=== PATIENT | female | born 2000 | race Two or more races ===

== ENCOUNTER 2024-06-01 15:08 | Emergency (ER) | payer MEDICAID, SELFPAY ==
[2024-06-01 15:09] VITALS: BMI 33.6
[2024-06-01 15:39] VITALS: BP 137/81; PULSE 93; RESP 18; TEMP 36.6; O2SAT 99
[2024-06-01] MEDS: TETRACAINE PF OP SOL 0.5% 4 ML DRPETTE 1 DROP BOTH EYES (15:40)
--- NOTE | 2024-06-01 15:59 | EDNOTE_ITS ---
<Statement entered by Corinna Hatfield MD - 06/01/24 17:52> As co-signing physician, I was present and available for consult prn. I concur with the plan and care as documented by the midlevel provider. ED Eye Problem RME/HPI General Chief complaint: Eye Problems Stated complaint: CONTACT STUCK IN LEFT EYE, EYE PAIN Time Seen by Provider: 06/01/24 15:26 Arrival date/time: 06/01/24 15:08 23-year-old female presents the emergency department today with concerns for a contact lens stuck in her left eye patient reports irritation since last night Limitations: no limitations Related Data Previous Rx's ?Medication ?Instructions ?Recorded ibuprofen 600 mg tablet 600 mg PO TID PRN pain #30 tabs 06/20/22 hydrocodone 5 mg-acetaminophen 325 1 tab PO Q6H #20 tabs 09/17/23 mg tablet ibuprofen 600 mg tablet 600 mg PO Q6H PRN pain #30 tabs 02/21/24 tobramycin 0.3 % eye drops 2 drp ophthalmic (eye) Q4H 5 days 06/01/24 #5 mL Allergies Allergy/AdvReac Type Severity Reaction Status Date / Time No Known Allergies Allergy Verified 06/01/24 15:11 Review of Systems Review of Systems Systems Reviewed: All systems reviewed, normal except as documented Constitutional Constitutional: Reports system reviewed and no additional complaints, except as documented, Denies fever(s) and Denies headache(s) Eyes Eyes: Reports system reviewed and no additional complaints, except as documented and Denies blurry vision ENT Ears, Nose, Mouth, and Throat: Reports system reviewed and no additional complaints, except as documented, Denies headache(s), Denies nasal congestion and Denies nasal discharge Cardiovascular Cardiovascular: Reports system reviewed and no additional complaints, except as documented, Denies chest pain and Denies dyspnea Respiratory Respiratory: Reports system reviewed and no additional complaints, except as documented, Denies chest congestion, Denies cough and Denies dyspnea Gastrointestinal Gastrointestinal: Reports system reviewed and no additional complaints, except as documented and Denies abdominal pain Integumentary/Breasts Skin/Breast: Reports system reviewed and no additional complaints, except as documented and Denies rash Neurologic Neurologic: Reports system reviewed and no additional complaints, except as documented, Reports as per HPI and Denies headache(s) Past Medical History Past Medical History NEUROLOGIC: Negative Seizures CARDIAC: Negative Cardiac Disorders or Congestive Heart Failure RESPIRATORY: Negative Chronic Obstructive Pulmonary Disease (COPD) or Asthma GENITOURINARY: Negative Renal Disease ENDOCRINE: Negative Diabetes Mellitus Type 1 or Diabetes Mellitus Type 2 HEMATOLOGIC: Negative Sickle Cell Disease OTHER HISTORY: Negative Blood Transfusions, Blood Transfusion Reaction or Anesthesia Reactions (pt never had surgery) Social History SMOKING STATUS: Never smoker ED Exam General Limitations: Present no limitations General appearance: Present alert and in no apparent distress Head Head exam: Present atraumatic Eye Eye exam: Present PERRL, EOMI and conjunctival injection; Absent periorbital swelling ENT ENT exam: Present normal exam, normal oropharynx and mucous membranes moist Neck Neck exam: Present normal inspection, full ROM and trachea midline Chest Chest inspection: Present normal inspection and symmetric chest wall rise Respiratory Respiratory exam: Present normal lung sounds bilaterally Cardiovascular Cardiovascular exam: Present regular rate, normal rhythm and normal heart sounds Abdominal Exam Abdominal exam: Present soft and normal bowel sounds Extremities Exam Extremities exam: Present normal inspection and full ROM Back Exam Back exam: Present normal inspection and full ROM Neurological Exam Neurological exam: Present alert, oriented X3 and CN II-XII intact Psychiatric Psychiatric exam: Present normal affect and normal mood Skin Skin exam: Present warm, dry, intact and normal color Course Quality Measures none Orders Category Date Time Status TETRACAINE Op Racheal 0.5% [Pontocaine Op Racheal 0.5%] Med 06/01/24 15:26 Discontinued 1 drop BOTH EYES X1 ONE Vital Signs Vital signs: Vital Signs Temperature 98 F 06/01/24 15:39 Pulse Rate 93 06/01/24 15:39 Respiratory Rate 18 06/01/24 15:39 Blood Pressure 137/81 H 06/01/24 15:39 Pulse Oximetry (%) 99 06/01/24 15:39 Oxygen Delivery Method Room Air 06/01/24 15:39 O2 saturation 99% room air within normal limits Eye MDM Narrative MDM Narrative:: 23-year-old female presents the emergency department today with concerns for a contact lens stuck in her left eye patient reports irritation since last night On exam patient does not appear ill or toxic patient does not appear to be in acute distress On exam I do not appreciate any foreign bodies in the left eye patient has no hyphema no foreign bodies noted I did ask my colleague to take a look as well and he also did not see me foreign body Patient discharge home on antibiotics Patient discharged home in no distress to follow-up with primary care doctor in the next 24 to 48 hours and for any worsening symptoms to return to the ER immediately Patient data External records reviewed:: [facility] previous records Clinical information provided by:: patient Social determinants that could affect healthcare access:: none Patient has the following chronic illnesses:: None How is presenting disease/condition affected by chronic disease/condition?: no chronic disease Evaluation data The following diagnostics were reviewed and interpreted by me:: other (specify) (NA) Lab and/or radiology exams considered but not ordered:: Consider not ordered Interpretation Summary: N/A Medications / Prescriptions Medications or Prescriptions considered but not ordered:: Given Medication administrations:: Medication Administration History Discontinued Medications Tetracaine HCl (Tetracaine Pf Op Racheal 0.5% 4 Ml Drpette) 1 drop BOTH EYES X1 ONE Stop: 06/01/24 15:27 Last Admin: 06/01/24 15:40 Dose: 1 drop Documented By: Given Consultations Consultation(s) initiated? (list below): No Diagnosis Eye Problem Differential Diagnosis: corneal abrasion, conjunctivitis, corneal ulcer and other (Left eye irritation) Most likely diagnosis given after review of the tests above:: Left eye irritation Admission Indicated Admission indicated?: not indicated Admission Request Was there a request for admission?: No Disposition Plan Disposition Plan: Discharge Discharge Attestation Discharge Attestation: The patient and all family members were given an opportunity to ask questions and understood the discharge instructions. Discharge instructions specifically effects, indications for sooner follow up or return to the emergency department, and the expected course of current diagnosis. Patient condition: Stable Discharge Plan Plan Patient Disposition: HOME (Self Care) Disposition Comment: Stable Prescriptions/Referrals Prescriptions/Med Rec: New tobramycin 0.3 % drops 2 drp ophthalmic (eye) Q4H 5 Days Qty: 5 0RF No Action ibuprofen 600 mg tablet 600 mg PO TID PRN (Reason: pain) Qty: 30 0RF ibuprofen 600 mg tablet 600 mg PO Q6H PRN (Reason: pain) Qty: 30 0RF hydrocodone-acetaminophen 5-325 mg tablet 1 tab PO Q6H MDD 4 Qty: 20 0RF Problem List Clinical Impression: Irritation of left eye Patient/Caregiver Discharge Instructions Education Materials: How the Eye Works Additional Instructions: Please follow up with your primary care doctor in the next 24-48hrs for any worsening symptoms return here immediately Print Language: Swedish Stand Alone Forms: [employer] Award Info., Patient Portal Info Letter PA/DIETITIAN THERAPEUTIC Supervising Physician PA/DIETITIAN THERAPEUTIC Supervising Physician: Dr. Hatfield
== END 2024-06-01 16:16 | disposition home or self-care (01) ==
LOC: SERX 16:03
PROVIDERS: Emergency Provider Emergency Medicine; PCP Registered Nurse Community Health
DX: H57.89 Other specified disorders of eye and adnexa (principal)
CPT/HCPCS: 99282

== ENCOUNTER 2025-04-17 14:18 | Outpatient (CLI) | payer MEDICAID, SELFPAY ==
[2025-04-17] VITALS (19 sets, daily range): BP systolic 130; BP diastolic 86; PULSE 76–95; RESP 20–99; TEMP 37; O2SAT 99–100; BMI 41.1
--- NOTE | 2025-04-17 14:36 | XR_ITS ---
Examination: Biophysical profile, ultrasound Date and time of exam: April 17, 2025, 1550 hours INDICATIONS: Nonreactive NST in the doctor's office today Technique: Multiple transabdominal sonographic images of the pelvis abdomen obtained. Attention is directed to the breathing movement, gross body movement, amniotic fluid volume and tone. Findings: Amniotic fluid index 7.8 cm Total biophysical profile is 8 of 8. breathing movement is 2. Gross body movement is 2. tone is 2. Qualitative amniotic fluid volume is 2 Impression: Biophysical profile is 8 of 8.
[2025-04-17] MEDS: PANTOPRAZOLE 20 MG TABLET PO (16:10)
== END 2025-04-17 16:20 | disposition home or self-care (01) ==
LOC: S4S1 14:19 → S4SX 14:19
PROVIDERS: Referring Provider Specialist; Visit Provider Specialist
DX: Z34.03 Encounter for supervision of normal first pregnancy, third trimester (principal); Z36.9 Encounter for antenatal screening, unspecified; Z3A.40 40 weeks gestation of pregnancy
CPT/HCPCS: 59025; 76819; A9270

== ENCOUNTER 2025-04-18 21:37 | Observation (INO) | payer MEDICAID, SELFPAY ==
[2025-04-18 21:43] VITALS: BP 137/80; PULSE 83; RESP 18; RESP 99; TEMP 37; BMI 43.1
[2025-04-18 21:50] VITALS: BP 137/80; PULSE 83
== END 2025-04-19 01:33 | disposition home or self-care (01) ==
PROVIDERS: Admitting Provider Specialist; Visit Provider Specialist
DX: O47.1 False labor at or after 37 completed weeks of gestation (principal); O26.893 Other specified pregnancy related conditions, third trimester; M54.9 Dorsalgia, unspecified; Z3A.40 40 weeks gestation of pregnancy
CPT/HCPCS: 59025; 59899

== ENCOUNTER 2025-04-19 22:36 | Inpatient (IN) | payer MEDICAID, SELFPAY ==
[2025-04-19] VITALS (17 sets, daily range): BP systolic 132–142; BP diastolic 66–82; PULSE 71–95; RESP 16–98; TEMP 36.5; O2SAT 98–100
[2025-04-20] VITALS (151 sets, daily range): BP systolic 91–156; BP diastolic 56–108; PULSE 75–123; RESP 16–26; TEMP 36.6–37.5; O2SAT 85–100; BMI 42.3
[2025-04-20] MEDS: Ampicillin Inj 2,000 MG in SODIUM CHLORIDE 0.9% (POP) 100 ML 200 MG IV (02:01)
[2025-04-20] MEDS: RINGERS LACTATED 1000 ML 1,000 ML 100 ML IV ×2 (02:03→14:09)
[2025-04-20] MEDS: fentaNYL CIT INJ 50 mCg/ML AMP 2ML 100 MCG IVP ×3 (02:08→12:13)
[2025-04-20 02:45] LABS: Basophils # (Auto) 0.0 Thou/mm3 (0.0-0.2); Basophils % (Auto) 0 % (0-2.5); Eosinophils # (Auto) 0.0 Thou/mm3 (0.0-0.5); Eosinophils % (Auto) 0 % (0-10); Hematocrit 37.0 % (36.0-46.0); Hemoglobin 11.6 g/dL (12.0-16.0); Immature Granulocytes Auto 0.07 Thou/mm3 (0.00-0.00); Lymphocytes # (Auto) 1.1 Thou/mm3 (1.0-4.8); Lymphocytes % (Auto) 7 % (10-50); Mean Corpuscular HGB Conc 31.4 g/dl (31.0-37.0); Mean Corpuscular Hemoglobin 25.3 pg (25.0-35.0); Mean Corpuscular Volume 81 fL (80-100); Monocytes # (Auto) 0.7 Thou/mm3 (0.0-0.8); Monocytes % (Auto) 4 % (0-12); Neutrophils # (Auto) 13.3 Thou/mm3 (1.8-7.7); Neutrophils % (Auto) 88 % (37-80); Nucleated Red Blood Cell # 0.00 Thou/mm3 (0.00-0.00); Nucleated Red Blood Cell % 0 /100 WBC (0); Platelet Count 262 Thou/mm3 (140-440); RDW Standard Deviation 40.9 fL (36.4-46.3); Red Blood Count 4.58 Miln/mm3 (4.00-5.20); White Blood Count 15.2 Thou/mm3 (3.6-11.0)
[2025-04-20 03:30] LABS: Syphilis Nonreactive (Nonreactive)
--- NOTE | 2025-04-20 06:36 | ESHP_ITS ---
Documentation for date of: 04/20/25 OB Labor/Induct. HPI History of Present Illness : 1 Para: 0 Term pregnancies: 0 pregnancies: 0 Living children: 0 History of Abortions: Spontaneous and Elective: 0 History of Vaginal deliveries: 0 History of sections: No History of : No Date of last menstrual period: 07/08/24 JUANITO: 04/14/25 Gestational age based on last menstrual period: 39 History of present illness: H and P dictated on STAT line #9 in [facility]. #[id number] History of Present Adequate Care: Yes Labs Labs: Positive: Group Beta Strep, Negative: RPR, Hepatitis B, Rubella Titre, HIV, Chlamydia and Gonorrhea and Unknown: Herpes Type 1 and Herpes Type 2 Past Medical History Surgical History SURGICAL: Negative Section Meds Home Medications and Allergies Home Medications ?Medication ?Instructions ?Recorded ?Confirmed ?Type vit with calcium-iron 1 tab PO QDAY 04/17/25 04/17/25 History fum-folic acid 60 mg-0.8 mg tablet Allergies Allergy/AdvReac Type Severity Reaction Status Date / Time No Known Allergies Allergy Verified 04/20/25 01:31 OB Exam Physical Exam Vital signs: Temp Pulse Resp BP Pulse Ox 97.7 F 101 H 16 113/65 97 04/19/25 22:58 04/20/25 06:14 04/19/25 22:58 04/20/25 06:14 04/20/25 00:55 OB Results Labs 04/20/25 02:26 Labs: Short CBC 04/20/25 Range/Units 02:26 WBC 15.2 H (3.6-11.0) Thou/mm3 Hgb 11.6 L (12.0-16.0) g/dL Hct 37.0 (36.0-46.0) % Plt Count 262 (140-440) Thou/mm3
[2025-04-20] MEDS: Ampicillin Inj 1,000 MG in SODIUM CHLORIDE 0.9% (Popper) 50 ML 50 MG IV ×2 (06:37→10:15)
--- NOTE | 2025-04-20 06:47 | PD.LDPN ---
Documentation for date of: 04/20/25 OB Labor Progress Note Pain Control Comments: Fentanyl x 2 last at 04:45 Pelvic Exam Dilation (cm): 6 Effacement (%): 100 station: -1 Amniotic membrane status: Ruptured Comments: Clear fluid Contractions Monitor mode: External Contraction frequency: 2-4.5 Contraction intensity: Mild Status status: Category l Assessment and Plan Comments: Anticipate History of Present Illness HPI Coping with labor pains . No CP or SOB.
--- NOTE | 2025-04-20 14:13 | PD.LDPN ---
Documentation for date of: 04/20/25 OB Labor Progress Note Pelvic Exam Dilation (cm): 6 Effacement (%): 100 station: -1 Amniotic membrane status: Ruptured Contractions Monitor mode: External Contraction frequency: 2-3 Contraction intensity: Strong Status status: Category ll Assessment and Plan Comments: Delivery Arrest of Dilation Chorioamnionitis Acetaminophen 1000mg IV x one dose Antibiotics Discussed with patient the risks, complications, alternative and benefits of the proposed procedure and she agrees. History of Present Illness HPI Coping with labor pains . No CP or SOB.
--- NOTE | 2025-04-20 14:21 | ESDS_ITS ---
DS: Providers Provider Date of admission: 04/23/25 00:49 Primary care physician: Physician No Primary/Family Admitting Provider: Paul Kirkpatrick MD Attending Provider on Admission: Paul Kirkpatrick MD Attending Provider on DC: Paul Kirkpatrick MD Discharging Provider: Paul Kirkpatrick MD DS: Diagnosis Problem List Completed Was Problem List Reviewed/Reconciled?: Yes Summary/Hosp Course Brief History: Coping with labor pains . No CP or SOB. Peripartum Data Delivery Method: Low Transverse Time Spent with Patient Time attestation: Total time spent providing and/or coordinating discharge services: Exam Vital Signs Temp Pulse Resp BP Pulse Ox O2 Del Method 99.1 F 100 19 136/83 H 97 Room Air 04/20/25 13:15 04/20/25 14:09 04/20/25 13:15 04/20/25 14:09 04/20/25 14:16 04/20/25 13:15 Discharge Plan Plan Patient Disposition: HOME (Self Care) Patient condition on transfer: Stable Prescriptions/Referrals Prescriptions/Med Rec: New hydrocodone-acetaminophen 5-325 mg tablet 1 tab PO Q6H MDD 4 PRN (Reason: pain) Qty: 20 0RF ibuprofen 600 mg tablet 600 mg PO Q6H PRN (Reason: pain) Qty: 30 0RF amoxicillin-pot clavulanate 875-125 mg tablet 1 tab PO Q12H Qty: 10 0RF Continued vit-iron fum-folic ac 60-0.8 mg tablet 1 tab PO QDAY Referrals: No Primary/Family,Physician [Primary Care Provider] Patient/Caregiver Discharge Instructions Discharge Activity: activity as tolerated Other Discharge Activity Instructions:: Follow up office 1 weeks. Print Language: Hungarian Stand Alone Forms: [employer] Info., Patient Portal Info Letter Discharge Order Discharge Orders: Discharge (Routine); Ordered 04/23/25 Ordered By: Paul Kirkpatrick Planned Discharge Date 04/22/25
--- NOTE | 2025-04-20 14:22 | ESOP_ITS ---
Operative Note - TERMINAL MAKEUP OPERATOR Procedure Date of procedure: 04/20/25 Procedure Performed: Primary low-transverse section via Pfannenstiel skin incision Indication: Intrauterine at 40 weeks and 6 days Active labor Arrest of dilatation Chorioamnionitis Pre-Op diagnosis: Intrauterine at 40 weeks and 6 days Active labor Arrest of dilatation Chorioamnionitis Post-Op diagnosis: Intrauterine at 40 weeks and 6 days Active labor Arrest of dilatation Chorioamnionitis Endometriosis Adenomyosis Anesthesia type: Spinal Procedure description: After proper informed consent was obtained and the patient was made aware of the risks, complications, alternatives and benefits of the proposed procedure she was taken to the operating room where she underwent induction of spinal anesthesia. She was prepped and draped in the usual sterile fashion. A timeout was performed.? A Pfannenstiel skin incision was made with the scalpel and carried through to the underlying layer of fascia with the Bovie. The fascia was nicked in the midline incision and the incision was extended bilaterally with the Bovie. The inferior aspect of the fascial incision was grasped with Meseret clamps elevated and the underlying rectus muscle dissected off with the Bovie. The superior aspect the fascial incision was grasped with Meseret clamps elevated and the underlying rectus muscle dissected off with the Bovie. The rectus muscles were in the midline. The peritoneum was grasped between 2 Pitts clamps and entered sharply with the Metzenbaum scissors. The peritoneum was extended superiorly and inferiorly with good visualization of the bladder. The vesicouterine peritoneum was incised transversely and the bladder flap created digitally. A Solo blade was inserted. A low transverse incision was made in the uterus with a scapel and the incision was extended digitally. The 's head delivered and the mouth and nose were suctioned with the bulb suction. The shoulder and body delivered atraumatically. The cord was clamped after 30 second delayed cord clamping and the cord was cut.? The female was handed off to the waiting Pediatric staff, cord blood was collected for lab testing. The placenta was removed complete and intact. The uterus was exteriorized and cleared of all clots and debris. The uterine incision was closed with #1-0 chromic catgut suture in a running interlocking fashion. A second layer of the same suture was used to imbricate the first layer and obtain excellent hemostasis. The vesicouterine peritoneum was closed with 2-0 chromic catgut suture in a running fashion. The firm uterus was returned to the abdomen. The gutters were cleared of all clots and debris. The peritoneum was closed with 0 chromic catgut suture in running fashion. The rectus muscle was closed with 0 chromic catgut suture. The fascia was closed with 0 Vicryl beginning at each angle and ending in the center in a running fashion. The subcutaneous tissue was irrigated with warmed normal saline solution and found to be hemostatic. The subcutaneous tissue was closed with 2-0 chromic catgut suture in a running fashion. The skin was closed with 4-0 Monocryl. A Dermabond Prineo dressing was applied and a sterile pressure dressing was applied.? She tolerated the procedure well. Counts were correct. I discussed with the patient the nature of her condition, intraoperative findings and expectation for recovery all? juanjose enrique answered. Specimen: other (placenta) Estimated blood loss (ml): 1,000 Findings: Live female Apgars 8 and 9 Weight 8 lbs 1 oz. Amniotic fluid mucoid and cloudy Placenta removed complete and intact Cephalic Uterus contained superficial endometriotic implants on the posterior uterosacral ligaments Ovaries contained superficial endometriotic implants Fallopian tubes appeared grossly within normal limits Uterus initially atonic but responded to uterotonics: Pitocin, Methergine and Cytotec. TXA was also given. Hypertrophic myometrium consistent with Adenomyosis. Complications: other (Uterine atony) Surgical staff Jeramie Kirkpatrick, Surgeon. Diagnosis Discharge Diagnosis (1) Post-dates : Status: Acute (2) Arrest of dilation, delivered, current hospitalization: Status: Acute (3) delivery delivered: Status: Acute (4) Chorioamnionitis in third trimester: Status: Acute (5) Uterine atony: Status: Acute (6) Adenomyosis of the uterus: Status: Acute (7) Endometriosis of ovary: Status: Acute Problem List Completed Was Problem List Reviewed/Reconciled?: Yes (1) Post-dates Qualifiers: Post-term type: 40-42 weeks gestation Qualified Code(s): O48.0 - Post-term (4) Chorioamnionitis in third trimester Qualifiers: Fetus number: single or unspecified fetus Qualified Code(s): O41.1230 - Chorioamnionitis, third trimester, not applicable or unspecified
--- NOTE | 2025-04-20 14:24 | ESHP_ITS ---
RE: MARTIN JACK : 2000 DATE OF ADMISSION: 04/20/2025 HISTORY OF PRESENT ILLNESS: This is a 24-year-old 1, para 0, with due date of 04/14 with intrauterine at 40 weeks and 6 days who presents to [facility] for labor pains and is noted to be in early labor. Patient denies any leaking or bleeding. She reports normal movement. Her group B strep vaginal rectal swab at 37 weeks was positive. ALLERGIES: NO KNOWN DRUG ALLERGIES. MEDICATIONS: 1. multivitamin 1 p.o. daily. 2. Aspirin 81 mg 1 p.o. daily. 3. Ferrous sulfate 325 mg 1 p.o. daily. 4. Flonase inhaler 2 puffs twice a day p.r.n. wheezing. 5. Albuterol inhaler 2 puffs q. 6 hours p.r.n. shortness of breath, wheezing. PAST MEDICAL HISTORY: Asthma, hypothyroidism, iron deficiency anemia, left carpal tunnel syndrome, BMI 44. OBSTETRICAL HISTORY: Primigravida. GYNECOLOGIC HISTORY: Denies any history of any sexually transmitted diseases. PAST SURGICAL HISTORY: Denies. FAMILY HISTORY: Brother has autism. REVIEW OF SYSTEMS: She denies any headache, change of vision, or right upper quadrant pain. She denies any chest pain, palpitations, shortness of breath, or lower extremity pain. PHYSICAL EXAMINATION: VITAL SIGNS: Blood pressure 141/82, heart rate 88, respirations 18, temperature is 98.6. Weight 241 pounds. HEENT: Oropharynx and sclerae are clear. LUNGS: Clear to auscultation bilaterally. HEART: Regular rate and rhythm. ABDOMEN: Gravid term size consistent with estimated weight 8 pounds. PELVIC: See RN notes. EXTREMITIES: Nontender. SKIN: No gross rashes or lesions. NEUROLOGIC: No focal deficit. ASSESSMENT AND PLAN: Intrauterine at 40 weeks 6 days. Labor , anticipate spontaneous vaginal delivery. Informed consent was obtained. The patient is made aware of the risks, complications, alternatives, and benefits of operative vaginal delivery and delivery and agrees with these modes of delivery if indicated. DT: 14:37:27 TT: 15:03:00 Ref: [id number] - TID: [id number] [facility]
[2025-04-20] MEDS: OXYTOCIN in NS 20 units 20 UNIT/1,000 ML BAG 125 UNIT IV (17:51)
[2025-04-20] MEDS: AMPICILLIN/SULBAC INJ 3 GM in SODIUM CHLORIDE 0.9% (POP) 100 ML IV (17:57)
--- NOTE | 2025-04-20 18:22 | PC.NURSE ---
Per DR HUBBARD before leaving OB OR, Orders received to administer 800mcg cytotec NE before leaving OB OR with pt.
[2025-04-20] MEDS: ACETAMINOPHEN IVPB 1,000 MG/100 ML VIAL 250 MG IV (19:41)
[2025-04-20 23:51] LABS: Basophils # (Auto) 0.1 Thou/mm3 (0.0-0.2); Basophils % (Auto) 0 % (0-2.5); Eosinophils # (Auto) 0.0 Thou/mm3 (0.0-0.5); Eosinophils % (Auto) 0 % (0-10); Hematocrit 29.8 % (36.0-46.0); Hemoglobin 9.5 g/dL (12.0-16.0); Immature Granulocytes Auto 0.12 Thou/mm3 (0.00-0.00); Lymphocytes # (Auto) 1.7 Thou/mm3 (1.0-4.8); Lymphocytes % (Auto) 8 % (10-50); Mean Corpuscular HGB Conc 31.9 g/dl (31.0-37.0); Mean Corpuscular Hemoglobin 25.7 pg (25.0-35.0); Mean Corpuscular Volume 81 fL (80-100); Monocytes # (Auto) 1.6 Thou/mm3 (0.0-0.8); Monocytes % (Auto) 8 % (0-12); Neutrophils # (Auto) 17.2 Thou/mm3 (1.8-7.7); Neutrophils % (Auto) 83 % (37-80); Nucleated Red Blood Cell # 0.00 Thou/mm3 (0.00-0.00); Nucleated Red Blood Cell % 0 /100 WBC (0); Platelet Count 238 Thou/mm3 (140-440); RDW Standard Deviation 41.9 fL (36.4-46.3); Red Blood Count 3.69 Miln/mm3 (4.00-5.20); White Blood Count 20.7 Thou/mm3 (3.6-11.0)
[2025-04-21] VITALS: BP 114/72; PULSE 81; RESP 18; TEMP 37; O2SAT 96
[2025-04-21] MEDS: ACETAMINOPHEN IVPB 1,000 MG/100 ML VIAL 250 MG IV ×2 (00:43→06:14)
[2025-04-21] MEDS: OXYTOCIN in NS 20 units 20 UNIT/1,000 ML BAG 125 UNIT IV (02:34)
[2025-04-21 04:00] VITALS: BP 109/70; PULSE 89; RESP 19; TEMP 36.7; O2SAT 96
[2025-04-21] MEDS: AMPICILLIN/SULBAC INJ 3 GM in SODIUM CHLORIDE 0.9% (POP) 100 ML IV ×5 (05:30→23:13)
[2025-04-21 08:07] VITALS: BP 118/76; PULSE 78; RESP 16; TEMP 36.8; O2SAT 98
[2025-04-21] MEDS: ENOXAPARIN SOD INJ 40 MG/0.4 ML SYRINGE SC (08:26)
[2025-04-21] MEDS: KETOROLAC INJ 30 MG/ML VIAL IVP (08:26)
[2025-04-21] MEDS: DOCUSATE SOD 100 MG CAPSULE PO (08:27)
[2025-04-21 11:00] VITALS: BP 120/78; PULSE 86; RESP 18; TEMP 36.5; O2SAT 97
[2025-04-21] MEDS: ONDANSETRON INJ 2 MG/ML INJ 2 ML 4 MG IVP ×2 (13:45→20:44)
[2025-04-21] MEDS: METOCLOPRAMIDE INJ 5 MG/ML VIAL 2 ML 10 MG IVP ×2 (15:55→23:14)
[2025-04-21] MEDS: PROMETHAZINE INJ 25 MG in SODIUM CHLORIDE 0.9% 50 ML 102 MG IV (16:00)
--- NOTE | 2025-04-21 17:01 | PD.LDPPPRG ---
Subjective Subjective Interval history: Patient reports nausea vomiting not responding to Zofran. She reports crampy abdominal pain. She reports tolerating her breakfast with a good appetite then subsequently developing crampy abdominal pain and having nausea and vomiting. She denies passing flatus. She denies any dizziness or lightheadedness. She denies any excessive vaginal bleeding. She denies any chest pain palpitation shortness of breath or lower extremity pain. Exam Vital Signs Temp Pulse Resp BP Pulse Ox O2 Del Method 97.7 F 86 18 120/78 97 Room Air 04/21/25 11:00 04/21/25 11:00 04/21/25 11:00 04/21/25 11:00 04/21/25 11:00 04/21/25 11:00 Routine Respiratory Exam Comments: Clear to auscultation bilaterally Routine Cardiovascular Exam Comments: Regular rate and rhythm Routine Abdominal Exam Comments: Dressing removed. Incision clear and intact. Abdomen mild gaseous distention. No guarding rebound or rigidity. Routine Extremities Exam Comments: Nontender Objective Labs 04/20/25 23:09 Labs: Laboratory Results - last 24 hr 04/20/25 23:09 WBC 20.7 H D RBC 3.69 L Hgb 9.5 L D Hct 29.8 L MCV 81 MCH 25.7 MCHC 31.9 RDW Std Deviation 41.9 Plt Count 238 Neut % (Auto) 83 H Lymph % (Auto) 8 L [place] % (Auto) 8 Eos % (Auto) 0 Baso % (Auto) 0 Neut # (Auto) 17.2 H Lymph # (Auto) 1.7 [place] # (Auto) 1.6 H Eos # (Auto) 0.0 Baso # (Auto) 0.1 Immature Gran # (Auto) 0.12 H Absolute Nucleated RBC 0.00 Immature Gran % 1 H Nucleated RBC % 0 Impressions Impression: Postop day #1 status post delivery Chorioamnionitis Delayed gastric motility Abdominal x-ray Reglan 10 mg IV every 6 hours Promethazine 25 mg IV every 6 hours as needed nausea vomiting Clear liquid diet Encourage ambulation support Assessment & Plan Problem List (1) Post-dates : Status: Acute (2) Arrest of dilation, delivered, current hospitalization: Status: Acute (3) delivery delivered: Status: Acute (4) Chorioamnionitis in third trimester: Status: Acute (5) Uterine atony: Status: Acute (6) Adenomyosis of the uterus: Status: Acute (7) Endometriosis of ovary: Status: Acute Time Spent With Patient Time: Total time spent is greater than 50% in coordination of care (as documented) at patient's floor/unit and/or counseling patient:
[2025-04-21 17:06] VITALS: BP 118/64; PULSE 92; RESP 16; TEMP 36.8; O2SAT 98
--- NOTE | 2025-04-21 17:06 | XR_ITS ---
EXAMINATION: Abdomen 2 views TECHNIQUE: AP upright AP supine abdomen 2 views Date and time: April 21, 2025, 1733 hours INDICATIONS: Ileus abdominal distention labor and delivery patient FINDINGS: Significant colonic ileus No obstruction No free air No renal or ureteral calculi IMPRESSION: Significant colonic ileus
[2025-04-21 21:03] VITALS: BP 122/82; PULSE 99; RESP 18; TEMP 37.2; O2SAT 97
--- NOTE | 2025-04-21 23:57 | PRELIM_ITS ---
Radiographs of the abdomen (4 views). April 21, 2025 at 1733 hours Clinical history: Ileus. Comparison: None available at the time of this report. Findings: Dilated small bowel loops. No free air. Impression: Dilated small bowel loops, differential close includes ileus and bowel obstruction. Discussion Details: Results verbally communicated to Lashon Yepez RN at 02.55 AM ET on 04/22/2025. A call back number is provided to facilitate direct Physician to Physician communication. Report Electronically Signed By: Darius Maldonado 04/21/2025 11:56:49 PM [EST]
--- NOTE | 2025-04-22 00:38 | PC.NURSE ---
Informed Dr Kirkpatrick of pts abd xray results. new order for NPO received.
[2025-04-22 03:58] VITALS: BP 138/88; PULSE 85; RESP 16; TEMP 36.8; O2SAT 96
[2025-04-22] MEDS: AMPICILLIN/SULBAC INJ 3 GM in SODIUM CHLORIDE 0.9% (POP) 100 ML IV ×4 (05:15→23:32)
[2025-04-22] MEDS: METOCLOPRAMIDE INJ 5 MG/ML VIAL 2 ML 10 MG IVP ×4 (05:15→23:32)
--- NOTE | 2025-04-22 05:26 | ESPR_ITS ---
RE: MARTIN JACK : 2000 DATE OF SERVICE: 04/22/2025 SUBJECTIVE: Post-op day #2, patient is complaining of nausea and vomiting and she is yet to pass flatus. An abdominal x-ray shows an ileus. OBJECTIVE: VITAL SIGNS: Blood pressure 138/88. Heart rate 85. Respirations 16. Temperature is 98.3. Pulse ox is 96% on room air. LUNGS: Clear to auscultation bilaterally. HEART: Regular rate and rhythm. ABDOMEN: Mild gaseous distention, hypoactive bowel sounds, incision clear and intact, fundus is firm. EXTREMITIES: Non-tender. ASSESSMENT: Post-op day #2 status post delivery. Chorioamnionitis/endometritis. Ileus. PLAN: Maintain n.p.o. Continue antiemetics. Continue Reglan. When passing regular flatus, will resume regular diet. Encourage ambulation. DT: 05:02:17 TT: 05:26:00 Ref: [id number] - TID: [id number]
[2025-04-22 06:19] LABS: Basophils # (Auto) 0.0 Thou/mm3 (0.0-0.2); Basophils % (Auto) 0 % (0-2.5); Eosinophils # (Auto) 0.0 Thou/mm3 (0.0-0.5); Eosinophils % (Auto) 0 % (0-10); Hematocrit 29.5 % (36.0-46.0); Hemoglobin 9.6 g/dL (12.0-16.0); Immature Granulocytes Auto 0.15 Thou/mm3 (0.00-0.00); Lymphocytes # (Auto) 1.4 Thou/mm3 (1.0-4.8); Lymphocytes % (Auto) 8 % (10-50); Mean Corpuscular HGB Conc 32.5 g/dl (31.0-37.0); Mean Corpuscular Hemoglobin 26.5 pg (25.0-35.0); Mean Corpuscular Volume 82 fL (80-100); Monocytes # (Auto) 1.2 Thou/mm3 (0.0-0.8); Monocytes % (Auto) 7 % (0-12); Neutrophils # (Auto) 14.6 Thou/mm3 (1.8-7.7); Neutrophils % (Auto) 84 % (37-80); Nucleated Red Blood Cell # 0.00 Thou/mm3 (0.00-0.00); Nucleated Red Blood Cell % 0 /100 WBC (0); Platelet Count 266 Thou/mm3 (140-440); RDW Standard Deviation 41.8 fL (36.4-46.3); Red Blood Count 3.62 Miln/mm3 (4.00-5.20); White Blood Count 17.4 Thou/mm3 (3.6-11.0)
[2025-04-22 08:00] VITALS: BP 140/87; PULSE 89; RESP 18; TEMP 36.7; O2SAT 96
[2025-04-22] MEDS: ENOXAPARIN SOD INJ 40 MG/0.4 ML SYRINGE SC (09:27)
[2025-04-22] MEDS: KETOROLAC INJ 30 MG/ML VIAL IVP (11:27)
[2025-04-22 11:46] VITALS: BP 137/84; PULSE 89; RESP 16; TEMP 36.7; O2SAT 96
--- NOTE | 2025-04-22 13:00 | PD.LDPPPRG ---
Subjective Subjective Interval history: No more Nausea and Vomiting. Passing flatus. Wants to eat. Exam Vital Signs Temp Pulse Resp BP Pulse Ox O2 Del Method 98.1 F 89 16 137/84 H 96 Room Air 04/22/25 11:46 04/22/25 11:46 04/22/25 11:46 04/22/25 11:46 04/22/25 11:46 04/22/25 11:46 Objective Labs 04/22/25 05:23 Labs: Laboratory Results - last 24 hr 04/22/25 05:23 WBC 17.4 H RBC 3.62 L Hgb 9.6 L Hct 29.5 L MCV 82 MCH 26.5 MCHC 32.5 RDW Std Deviation 41.8 Plt Count 266 Neut % (Auto) 84 H Lymph % (Auto) 8 L Atlantic % (Auto) 7 Eos % (Auto) 0 Baso % (Auto) 0 Neut # (Auto) 14.6 H Lymph # (Auto) 1.4 Atlantic # (Auto) 1.2 H Eos # (Auto) 0.0 Baso # (Auto) 0.0 Immature Gran # (Auto) 0.15 H Absolute Nucleated RBC 0.00 Immature Gran % 1 H Nucleated RBC % 0 Impressions Impression: Ileus resolving Regular diet Assessment & Plan Problem List (1) Post-dates : Status: Acute (2) Arrest of dilation, delivered, current hospitalization: Status: Acute (3) delivery delivered: Status: Acute (4) Chorioamnionitis in third trimester: Status: Acute (5) Uterine atony: Status: Acute (6) Adenomyosis of the uterus: Status: Acute (7) Endometriosis of ovary: Status: Acute Time Spent With Patient Time: Total time spent is greater than 50% in coordination of care (as documented) at patient's floor/unit and/or counseling patient:
[2025-04-22 20:51] VITALS: BP 125/87; PULSE 90; RESP 16; TEMP 36.7; O2SAT 98
[2025-04-22] MEDS: IBUPROFEN TAB 400 MG TABLET 800 MG PO (23:34)
[2025-04-23 03:41] VITALS: BP 124/86; PULSE 75; RESP 16; TEMP 36.6; O2SAT 98
[2025-04-23] MEDS: METOCLOPRAMIDE INJ 5 MG/ML VIAL 2 ML 10 MG IVP (05:27)
[2025-04-23] MEDS: AMPICILLIN/SULBAC INJ 3 GM in SODIUM CHLORIDE 0.9% (POP) 100 ML IV (05:27)
[2025-04-23 07:50] VITALS: BP 128/86; PULSE 87; RESP 17; TEMP 36.8; O2SAT 99
[2025-04-23] MEDS: DOCUSATE SOD 100 MG CAPSULE PO (09:30)
[2025-04-23] MEDS: ENOXAPARIN SOD INJ 40 MG/0.4 ML SYRINGE SC (09:30)
--- NOTE | 2025-04-26 14:59 | ESPR_ITS ---
RE: MARTIN JACK : 2000 DATE OF SERVICE: 04/23/2025 SUBJECTIVE: Post op day #3, patient denies any problem or complaints. She is voiding. She is ambulating. She is tolerating her diet. She is passing flatus. She denies any excessive vaginal bleeding. She denies any dizziness or lightheadedness. She denies any chest pain, palpitations, shortness of breath, or lower extremity pain. OBJECTIVE: Vital Signs: Blood pressure 124/86, heart rate 75, respirations 16, temperature is 97.8. Pulse ox is 98% on room air. LUNGS: Clear to auscultation bilaterally. HEART: Regular rate and rhythm. ABDOMEN: Incision clear and dry. Fundus is firm. EXTREMITIES: Nontender. ASSESSMENT: Post op day #3 status post delivery, ileus resolved. PLAN: Discharge home. Discharge instructions given. Follow up in the office in 1 week. DT: 08:31:11 TT: 09:52:00 Ref: [id number] - TID: [id number]
== END 2025-04-23 10:35 | disposition home or self-care (01) | DRG 540 ==
LOC: S4SX 04-20 14:27 → S4NX 04-20 14:49
PROVIDERS: Admitting Provider Specialist; Visit Provider Specialist
PROC: 10D00Z1 Extraction of Products of Conception, Low, Open Approach (ICD-10-PCS; CPT 59514; principal; 2025-04-20 14:30)
DX: O48.0 Post-term pregnancy (principal); Z37.0 Single live birth; O41.1230 Chorioamnionitis, third trimester, not applicable or unspecified; Z3A.40 40 weeks gestation of pregnancy; O62.0 Primary inadequate contractions; N71.9 Inflammatory disease of uterus, unspecified; O75.3 Other infection during labor; K56.7 Ileus, unspecified; N80.109 Endometriosis of ovary, unspecified side, unspecified depth; N80.03 Adenomyosis of the uterus; Z79.82 Long term (current) use of aspirin; Z79.51 Long term (current) use of inhaled steroids
CPT/HCPCS: 36415; 59025; 59409; 59899; 74019; 85025; 86780; 86850; 86900; 86901; 94762; A4217; A4314; A4649; J0131; J0290; J0295; J1650; J1885; J2210; J2274; J2371; J2405; J2550; J2590; J2765; J2795; J3010; J3490; J7050; J7120; S0191; A9270; J2270